=== PATIENT | male | born 1980 | race Caucasian/White ===

== ENCOUNTER → 2024-04-03 10:25 | Outpatient (CLI) | payer OTHER, SELFPAY ==
--- NOTE | 2024-04-03 10:46 | DI.MRI.S_ITS ---
PROCEDURE: MR KNEE LT WO CON INDICATIONS: LEFT KNEE INJURY TECHNIQUE: Noncontrast sagittal PD fast spin echo and T2 fast spin echo with fat saturation, sagittal 3-D FLASH with fat saturation; coronal T1 spin echo and PD fast spin echo with fat saturation, and axial PD fast spin echo with fat saturation through the knee. COMPARISON: None. FINDINGS: Image quality: Excellent. Menisci: Medial meniscus is intact. There is vague linear horizontal high T2 signal intensity traversing the inner, middle, and peripheral thirds of the posterior horn lateral meniscus, demonstrating superior articular surface extension, indicating probable horizontal tearing. Cruciate ligaments: The anterior and posterior cruciate ligaments appear intact. Medial structures: The medial collateral ligament appears intact. Small amount of fluid deep to the mid and inferior aspect of the medial collateral ligament. Visualized portions of the pes anserinus tendons appear normal. Small amount of medial bursal fluid. Lateral structures: The lateral collateral ligament, long and short heads of the biceps femoris tendon appear intact. The popliteus tendon appears normal. Iliotibial band appears normal. Anterior structures: Mild T2 signal elevation within the patellar tendon at the patellar insertion site. A few scattered low-grade tears of the distal quadriceps tendon at the patellar insertion site are present.. Patellar alignment is normal. No femoral trochlear dysplasia or ventral trochlear prominence. No edema in the infrapatellar fat pad. Bones and cartilage: No bone marrow contusions or fractures. Mild tricompartmental periarticular osteophyte formation. Mild diffuse articular cartilage loss within all 3 compartments present. Joint space: There is physiologic knee joint fluid. Small Mills's cyst. Normal appearing synovial plicae are incidentally noted. IMPRESSION: 1. Probable horizontal tearing of lateral meniscus. 2. Low-grade partial-thickness tearing of the quadriceps tendon. 3. Patellar tendinitis. 4. Medial bursitis. 5. Medial collateral ligament bursitis. Dictated by: Sonny Santos M.D. on 04/03/2024 at 13:17 Approved by: Sonny Santos M.D. on 04/03/2024 at 13:21
== END ==
PROVIDERS: Referring Provider Preventive Medicine Aerospace Medicine; Visit Provider Preventive Medicine Aerospace Medicine
DX: S76.112A Strain of left quadriceps muscle, fascia and tendon, initial encounter (principal); S80.912A Unspecified superficial injury of left knee, initial encounter; M76.52 Patellar tendinitis, left knee
CPT/HCPCS: 73721